=== PATIENT | male | born 1985 | race Two or more races ===

== ENCOUNTER 2023-01-15 21:29 | Emergency (ER) | payer SELFPAY ==
[2023-01-15 21:35] VITALS: BP 117/60; PULSE 76; RESP 18; TEMP 35.9; O2SAT 96; BMI 31.9
--- NOTE | 2023-01-15 21:53 | ED.GENADULT ---
HPI - General Adult General Chief complaint: Skin/Abscess/Foreign Body Stated complaint: Stepped on nail, big toe R foot Time Seen by Provider: 01/15/23 21:42 History of Present Illness HPI narrative: This patient is a 38-year-old male who stepped on a nail prior to arrival. He states that it was a small nail in it when into the plantar surface of his right great toe. He was wearing shoes. The nail is removed and he is not complaining much of pain. He states the reason he comes in as he needs a tetanus vaccination. He also states that he has a friend who has diabetes and had an injury to a toe and had to have it amputated because it did not heal. He is fearful that the same thing might happen for him however he does not have diabetes and otherwise is in good health. Related Data Home Medications Medication Instructions Recorded Confirmed No Known Home Medications 01/15/23 01/15/23 Allergies Allergy/AdvReac Type Severity Reaction Status Date / Time No Known Drug Allergies Allergy Verified 01/15/23 21:35 Review of Systems Status of ROS: Reports: 10 or more systems reviewed and unremarkable except as noted in History and below Narrative: Constitutional: No fevers, no weight gain or loss. Eyes: No discharge. No vision changes. HENT: No congestion, no sore throat, no ear pain. Cardiovascular: No chest pain, no palpitations. Respiratory: No shortness of breath, no wheezes, no cough. Gastrointestinal: No abdominal pain, no vomiting, no diarrhea. Genitourinary: No dysuria, no hematuria. Musculoskeletal: Normal range of motion. Skin: No rashes, no pruritis. Neurological: No dizziness, weakness, sensory change, speech change. Endo/Heme/Allergies: No bruising or bleeding. No polydipsia. All other systems reviewed and are negative. PFSH PFSH Social History Smoking Status: Never smoker Do you use any of these nicotine containing products: None Second hand tobacco smoke exposure: No How often do you have a drink containing alcohol: monthly or less How many standard drinks containing alcohol do you have on a typical day: 1 or 2 How often do you have six or more drinks on one occasion: Never AUDIT-C Alcohol total score: 1 Non-prescribed substance use: denies use service: No Exam Narrative: Exam Narrative: Constitutional: Well-developed, well-nourished, no acute distress. HEENT: Normocephalic, atraumatic. Neck: Normal range of motion. Nontender. Supple. Heart: Intact distal pulses. Lungs: No chest discomfort. No wheezes, rhonchi, or rales. Abdomen: Nontender. Back: Normal range of motion. Extremities: Normal range of motion. Small puncture wound on the plantar surface of the right great toe. There is no bleeding. No other sign of injury. Skin: No rash. Warm. No erythema or pallor. Neurologic: No altered sensation. No weakness. Alert and oriented. Psychiatric: No suicidality. No anxiety or depression. No insomnia. Nursing notes and vitals signs are reviewed. Const: Vital Signs, click to edit/add: Vital Signs - 24 hr 01/15/23 21:35 Temperature 96.6 F L Pulse Rate [Pulse Oximeter] 76 Respiratory Rate 18 Blood Pressure [Ri ght Upper Arm] 117/60 Pulse Oximetry 96 Oxygen Delivery Me thod Room Air Course Vital Signs Vital signs: Initial Vital Signs Temperature 96.6 F L 01/15/23 21:35 Temperature Source Temporal Artery Scan 01/15/23 21:35 Pulse Rate 76 01/15/23 21:35 Pulse Rhythm Regular 01/15/23 21:35 Respiratory Rate 18 01/15/23 21:35 Blood Pressure 117/60 01/15/23 21:35 Blood Pressure Mean 79 01/15/23 21:35 Blood Pressure Position Supine 01/15/23 21:35 Pulse Oximetry 96 01/15/23 21:35 Oxygen Delivery Method Room Air 01/15/23 21:35 Vital Signs Temperature 96.6 F L 01/15/23 21:35 Pulse Rate 76 01/15/23 21:35 Respiratory Rate 18 01/15/23 21:35 Blood Pressure 117/60 01/15/23 21:35 Pulse Oximetry 96 01/15/23 21:35 Oxygen Delivery Method Room Air 01/15/23 21:35 Temperature 96.6 F L 01/15/23 21:35 Pulse Rate 76 01/15/23 21:35 Respiratory Rate 18 01/15/23 21:35 Blood Pressure 117/60 01/15/23 21:35 Pulse Oximetry 96 01/15/23 21:35 Oxygen Delivery Method Room Air 01/15/23 21:35 Medical Decision Making MDM Narrative Medical decision making narrative: This patient presents here simply to get a tetanus vaccination. I did reassure him that he does not have systemic disease that but some at risk for losing his toe. He did receive a tetanus vaccination. He is encouraged use [id number] medicines as needed and directed. Discharge Plan Discharge Clinical Impression: Puncture wound Patient Disposition: Home, Self-Care Condition: Stable Additional Instructions: Use [id number] medicines as needed and directed. Increase activity as tolerated. Follow up with MD or return if worsening. Prescriptions: No Action No Known Home Medications Stand Alone Forms: [employer] Info Instructions
[2023-01-15] MEDS: TETANUS/DIPHTH/PERTUSSIS 0.5 ML SYRINGE IM (22:19)
== END 2023-01-15 22:22 | disposition home or self-care (01) ==
PROVIDERS: Emergency Provider Emergency Medicine Emergency Medical Services
DX: S91.341A Puncture wound with foreign body, right foot, initial encounter (principal); W45.0XXA Nail entering through skin, initial encounter
CPT/HCPCS: 90471; 90715; 99282; 99284